=== PATIENT | female | born 1995 | race African-American/Black ===

== ENCOUNTER 2021-07-02 18:31 | Emergency (ER) | payer OTHER, SELFPAY ==
--- NOTE | ~2021-07-02 | XR_ITS ---
EXAMINATION: XR chest 1V portable INDICATION: Cough, chest tightness TECHNIQUE: Portable AP chest at 2144 hours COMPARISON: None available FINDINGS: The lungs are free of acute opacities. There is no pleural effusion or pneumothorax. The ca rdiomediastinal silhouette is normal. The visualized bones and soft tissues are unremarkable. IMPRESSION: 1. No acute cardiopulmonary abnormality. Reviewed, dictated and finalized at location F. T BOOTH OPERATOR
--- NOTE | ~2021-07-02 | CT_ITS ---
EXAMINATION: CTA chest PE protocol DATE: 07/03/2021 00:38 INDICATION: Chest tightness. Cough. TECHNIQUE: Computed tomography angiography (CTA) of the chest was performed with 100 mL Omnipaque-350 intravenous contrast timed to evaluate the pulmonary arteries. Coronal maximum intensity projection 3D-reconstructions were created by the technologist. Automated exposure control and iterative reconst ruction technique were employed. The dose-length product was 147.40 mGy-cm. COMPARISON: None. FINDINGS: The lungs demonstrate minimal atelectasis. No pleural effusion. The heart size is normal. N o pericardial effusion. There is no pulmonary embolus. There are old healed bilateral rib fractures. There is thoracolumbar dextroscoliosis and mild spondylosis. IMPRESSION: 1. No pulmonary embolus. Reviewed, dictated and finalized at location B. OM SANDER IMPRESSION: 1. No pulmonary embolus.
--- NOTE | 2021-07-02 18:33 | ECG_ITS ---
Measurements Intervals [place] Rate: 105 P: 67 MO: 142 QRS: 46 QRSD: 73 T: -17 QT: 308 QTc: 408 Interpretive Statements SINUS TACHYCARDIA POSSIBLE LEFT ATRIAL ENLARGEMENT INCOMPLETE RIGHT BUNDLE BRANCH BLOCK BORDERLINE T WAVE ABNORMALITY- ANT/INF LEADS BORDERLINE ECG Electronically Signed On 07-02-2021 19:17:39 SHANK CEMENTER HAND by Neeraj Thomson D.O.
[2021-07-02 19:37] VITALS: BP 123/89; PULSE 88; RESP 18; TEMP 36.6; O2SAT 98
[2021-07-02 22:09] VITALS: BP 140/86; PULSE 107; RESP 18; O2SAT 98
[2021-07-02 22:15] LABS: Basophils Percent Auto 0.3 % (0.2-1.2); Eosinophils Absolute Auto 0.1 K/mm3 (0-0.3); Eosinophils Percent Auto 1.6 % (0-4.4); Hematocrit 38.8 % (37.0-47.0); Hemoglobin 13.6 g/dL (12.0-15.0); Immature Granulocyte Absolute 0.02 K/mm3 (0.00-0.031); Immature Granulocyte Percent A 0.3 % (0-0.5); Lymphocytes Absolute Auto 1.17 K/mm3 (0.9-3.2); Mean Corpuscular HGB Conc 35.1 g/dl (32-36); Mean Corpuscular Hemoglobin 28.2 pg (26-34); Mean Corpuscular Volume 80.3 fl (80-100); Mean Platelet Volume 9.4 fl (7.4-10.4); Monocytes Absolute Auto 0.4 K/mm3 (0.1-0.6); Monocytes Percent Auto 5.8 % (2.6-8.5); Neutrophils Absolute Auto 4.5 K/mm3 (1.3-6.7); Platelet Count Result 269 k/mm3 (150-375); Red Blood Count 4.83 M/mm3 (4.2-5.4); Red Cell Distribution Width 12.9 % (11.5-14.5); White Blood Count 6.2 K/mm3 (4.5-10.0)
--- NOTE | 2021-07-02 22:23 | ED.CHESTPAIN ---
HPI - Chest Pain General Chief Complaint: Chest Pain Stated Complaint: CHEST TIGHTNESS X1D Time Seen by Provider: 07/02/21 21:34 Source: patient and RN notes reviewed Mode of arrival: ambulatory Limitations: no limitations History of Present Illness HPI narrative: Patient is 25 years old -[place] female presents with squeezing type of chest pain started constant left upper chest 24 hours ago. Last Covid vaccine September 2020, last Covid infection January 2021, patient also complaining of nasal congestion and runny nose with slight productive cough over the last few days. Patient denies any fever, chills, headache, body ache., Exposure to anybody with possible Covid infection. Related Data Allergies Allergy/AdvReac Type Severity Reaction Status Date / Time No Known Allergies Allergy Verified 07/02/21 22:09 Review of Systems Review of Systems: CONSTITUTIONAL: Denies fever, chills, or sweats. EYES: Denies visual changes, redness, or discharge. ENT: Denies rhinorrhea, congestion, sore throat, or otalgia. CARDIOVASCULAR: Denies chest pain, palpitations, or edema. RESPIRATORY: Denies cough or dyspnea. GASTROINTESTINAL: Denies abdominal pain, nausea, vomiting, or diarrhea. GENITOURINARY: Denies dysuria or hematuria. SKIN: Denies rash or itching. MUSCULOSKELETAL: Denies back pain, joint pain, or myalgia. NEUROLOGIC: Denies headache, numbness, or weakness. PSYCHIATRIC: Denies anxiety or depression. Exam Narrative: General appearance: Well-developed, well-nourished Skin: Normal color Head: Normocephalic, nontraumatic Eyes: Clear conjunctiva ENT: Oropharynx normal, ears normal, nose normal Neck: Supple, nontender Chest and respiratory: Airway patent, no respiratory distress, no accessory muscle use Heart: Regular rate/rhythm Abdomen: Soft, nontender, no organomegaly, quiet bowel sounds Vascular: Normal peripheral pulses, normal capillary refill. Musculoskeletal: Normal range of motion, nontender back Neurologic: Alert and oriented ?3, DOCK SUPERVISOR is normal as tested, no gross motor deficit Course Course Emergency Course: Stable Consultations Date: 07/03/21 Time: 00:46 Vital Signs Vital signs: Vital Signs Temperature 36.6 C 07/02/21 19:37 Pulse Rate 88 07/02/21 19:37 Respiratory Rate 18 07/02/21 19:37 Blood Pressure 123/89 07/02/21 19:37 Pulse Oximetry 98 07/02/21 19:37 Temperature 36.6 C 07/02/21 19:37 Pulse Rate 115 H 07/02/21 23:40 Respiratory Rate 21 H 07/02/21 23:40 Blood Pressure 143/94 H 07/02/21 23:40 Pulse Oximetry 98 07/02/21 23:49 MDM - Chest Pain Lab Data Result diagrams: 07/02/21 22:09 07/02/21 22:09 Labs: Lab Results 07/02/21 07/02/21 07/02/21 Range/Units 22:09 22:09 22:09 WBC 6.2 (4.5-10.0) K/mm3 RBC 4.83 (4.2-5.4) M/mm3 Hgb 13.6 (12.0-15.0) g/dL Hct 38.8 (37.0-47.0) % MCV 80.3 (80-100) fl MCH 28.2 (26-34) pg MCHC 35.1 (32-36) g/dl RDW 12.9 (11.5-14.5) % Plt Count 269 (150-375) k/mm3 MPV 9.4 (7.4-10.4) fl Immature Gran % (Auto) 0.3 (0-0.5) % Neut % (Auto) 73.0 (45.5-73.1) % Lymph % (Auto) 19.0 (18.3-44.2) % Hamilton % (Auto) 5.8 (2.6-8.5) % Eos % (Auto) 1.6 (0-4.4) % Baso % (Auto) 0.3 (0.2-1.2) % Lymph # (Auto) 1.17 (0.9-3.2) K/mm3 Hamilton # (Auto) 0.4 (0.1-0.6) K/mm3 Eos # (Auto) 0.1 (0-0.3) K/mm3 Baso # (Auto) 0.0 (0.0-0.1) K/mm3 Abs Immat Gran (auto) 0.02 (0.00-0.031) K/mm3 Absolute Neuts (auto) 4.5 (1.3-6.7) K/mm3 Absolute Nucleated RBC 0.0 (0.0-0.012) K/mm3 Nucleated RBC % 0.0 (0.0-0.2) % D-Dimer 0.27 (<0.48) ug/mL Sodium 136 L (
[2021-07-02 22:26] LABS: Alanine Aminotransferase 25 U/L (4-35); Albumin Level 4.3 g/dL (3.5-5.1); Alkaline Phosphatase 54 U/L (38-126); Anion Gap 6 mmol/L (8-16); Aspartate Amino Transferase 26 U/L (14-36); Bilirubin,Total 0.5 mg/dL (0.2-1.3); Blood Urea Nitrogen 9 mg/dL (7-17); Calcium 8.9 mg/dL (8.4-10.2); Carbon Dioxide 24 mmol/L (22-30); Chloride 106 mmol/L (98-107); Estimated CRCL calculation 94 ml/min; Estimated Glomerular Filt Rate > 60; Glucose 93 mg/dL (65-110); Sodium 136 mmol/L (137-145)
[2021-07-02 22:37] LABS: Troponin I < 0.012 ng/mL (0.000-0.034)
[2021-07-02 23:21] LABS: D Dimer 0.27 ug/mL (<0.48)
[2021-07-02 23:40] VITALS: BP 143/94; PULSE 115; RESP 21; O2SAT 100
[2021-07-02 23:49] VITALS: O2SAT 98
[2021-07-03 01:23] VITALS: BP 144/87; PULSE 87; RESP 15; O2SAT 100
== END 2021-07-03 01:31 | disposition home or self-care (01) ==
PROVIDERS: Emergency Provider Emergency Medicine
DX: R07.89 Other chest pain (principal); Z86.16 Personal history of COVID-19; R00.0 Tachycardia, unspecified; I45.10 Unspecified right bundle-branch block; R94.31 Abnormal electrocardiogram [ECG] [EKG]
CPT/HCPCS: 36415; 71045; 71275; 80053; 81025; 84484; 85025; 85380; 93005; 99284; Q9967

== ENCOUNTER 2024-03-21 17:45 | Emergency (ER) | payer BC, SELFPAY ==
[2024-03-21 17:58] VITALS: BP 124/70; PULSE 70; RESP 20; TEMP 36.7; O2SAT 100
--- NOTE | 2024-03-21 18:24 | ED.FEMALEGU ---
HPI - Female Genitourinary General Chief complaint: Urogenital-Female Stated complaint: uti Time Seen by Provider: 03/21/24 18:20 Source: patient Mode of arrival: ambulatory Limitations: no limitations History of Present Illness HPI Narrative: 28 year old female who presents to the [facility] care with complaints of 2 days burning with urination and vaginal discharge which is white and is itchy. Patient reports has noted foul odor when urinates not sure if urine or discharge does have past history of URI;s with urine noted to be dark and cloudy. Patient reports had intercourse with boyfriend on Wednesday and symptoms started on Wednesday, states no concern for STD's. MD elicited complaint: UTI and other (vaginal discharge and itching) Onset (ago): day(s) (2) Severity: mild Vaginal discharge: white and thick/cheesy Vaginal bleeding: none Urinary symptoms: Dysuria Treatment prior to arrival: none Related Data Allergies Allergy/AdvReac Type Severity Reaction Status Date / Time No Known Allergies Allergy Verified 03/21/24 18:13 Review of Systems Review of Systems: CONSTITUTIONAL: Denies fever, chills, or sweats. CARDIOVASCULAR: Denies chest pain, palpitations, or edema. RESPIRATORY: Denies cough or dyspnea. GASTROINTESTINAL: Denies abdominal pain, nausea, vomiting, or diarrhea. GENITOURINARY: Reports dysuria,no frequency,no urgency. Denies flank pain or hematuria.states vaginal itching and thick white discharge SKIN: Denies rash or itching. MUSCULOSKELETAL: Denies back pain or myalgia. Denies CVA tenderness NEUROLOGIC: Denies headache All systems reviewed & are unremarkable except as noted in HPI and below PMFSH Past Medical History Medical History Urinary tract infection Social History Social History Living arrangements: with family Gender identity (if verbalized by the patient): Female Comments At time of signature, agree with nursing past medical, surgical, social and family history. There is no relevant family history pertinent to the presenting complaint Exam Narrative: GENERAL: Well-appearing, well-nourished, and in no acute distress. HEAD: Normocephalic, atraumatic. NECK: Supple. no lymphadenopathy CHEST: Clear to auscultation. No respiratory distress.SAO2 100% on room air HEART: Regular rate and rhythm. No murmur heard. Normal peripheral pulses. ABDOMEN: Soft, nontender, nondistended, normal active bowel sounds. No CVA tenderness Reports burning with urination vaginal itching thick white discharge EXTREMITIES: Normal range of motion. No edema. SKIN: Warm, dry, no rash. NEURO: No focal deficits. Alert and oriented x3. Course Course Emergency Course: Patient is aware of diagnosis, understands and agrees to treatment plan.? Anticipatory guidance given.? Patient agrees to follow-up as directed and is aware of reasons to seek care at the emergency department. Portions of this record may have been created with voice recognition software Level of Care: Express Care Visit Vital Signs Vital signs: Vital Signs Temperature 36.7 C 03/21/24 17:58 Pulse Rate 70 03/21/24 17:58 Respiratory Rate 20 03/21/24 17:58 Blood Pressure 124/70 03/21/24 17:58 Pulse Oximetry 100 03/21/24 17:58 Oxygen Delivery Room Air 03/21/24 17:58 Temperature 36.7 C 03/21/24 17:58 Pulse Rate 70 03/21/24 17:58 Respiratory Rate 20 03/21/24 17:58 Blood Pressure 124/70 03/21/24 17:58 Pulse Oximetry 100 03/21/24 17:58 Oxygen Delivery Room Air 03/21/24 17:58 reviewed MDM - Female Genitourinary MDM Narrative Medical decision making narrative: Exam findings and UA show no acute concerns or changes; patient is non-toxic appearing and is in no distress.? Patient is appropriate for outpatient treatment and follow-up. Differential Diagnosis Differential diagnosis: Likely urinary tract infect
[2024-03-21 18:36] LABS: EDUAAPPEAR Clear; EDUABILI Negative (Negative); EDUABLOOD Negative (Negative); EDUACOLOR1 Yellow; EDUAGLUCOSE Negative (Negative); EDUAKETONE Negative (Negative); EDUALEUKO Trace (Negative); EDUANITRATE Negative (Negative); EDUAPROTEIN Negative (Negative); EDUAUROBILI 0.2
== END 2024-03-21 19:08 | disposition home or self-care (01) ==
PROVIDERS: Emergency Provider Registered Nurse
DX: B37.31 Acute candidiasis of vulva and vagina (principal); N39.0 Urinary tract infection, site not specified
CPT/HCPCS: 81003; 87086; 87088; 99213; G0463